=== PATIENT | female | born 1980 | race Caucasian/White ===

== ENCOUNTER 2018-04-06 06:51 | Day surgery (SDC) | payer MEDICAID ==
[~2018-04-06 06:51] MED LIST: Lactated Ringers 1,000 ML IV SCH; Sodium Chloride 0.9% 10 ML Syringe FLUSH PRN
[2018-04-06] MEDS ORDERED: Ketorolac 30 MG/ML SDV IVPUSH ONE (08:00)
[2018-04-06] MEDS ORDERED: Ondansetron 4 MG/2 ML SDV IVPUSH ONE (08:00)
[2018-04-06] MEDS ORDERED: fentaNYL 100 MCG/2 ML SDV IV ONE (08:00)
[2018-04-06] MEDS ORDERED: Propofol 200 MG/20 ML SDV IV ONE (08:00)
[2018-04-06] MEDS ORDERED: Midazolam 1 MG/ML 2 ML SDV IV ONE (08:00)
[2018-04-06] MEDS ORDERED: Lactated Ringers 1,000 ML IV ONE (08:00)
[2018-04-06] MEDS ORDERED: Lidocaine 1% with EPINEPHrine 1:100,000 20 ML MDV INJECT ONE (08:25)
[2018-04-06] MEDS ORDERED: Bupivacaine 0.5% 30 ML SDV INJECT ONE (08:25)
--- NOTE | 2018-04-06 08:52 | PCM.OPNOTE ---
- General Post-Op/Procedure Note Date of Surgery/Procedure: 04/06/18 Operative Procedure(s): right breast biopsy Findings: 4x2 cm mass Pre Op Diagnosis: right breast mass. fibroadenoma Post-Op Diagnosis: Same Anesthesia Technique: Local (10 ml 1 % lido with epi/0.5% buvipicaine), MAC Primary Surgeon: Vaughn Lopez Anesthesia Provider: Marek Ferrer Pathology: breast mass Complications: None Condition: Good Free Text/Narrative:: see dictation #[id number]
--- NOTE | 2018-04-06 16:45 | OR ---
DATE OF OPERATION: 04/06/2018 SURGEON: Vaughn Lopez MD PROCEDURE PERFORMED: Right breast biopsy. PREOPERATIVE DIAGNOSIS: Fibroadenoma of the right breast. POSTOPERATIVE DIAGNOSIS: Fibroadenoma of the right breast. 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 She has undergone a core biopsy, which is proven this. Due to the lesion's large size, she desires excision as this is tender and causes visible deformity of the breast. DESCRIPTION OF PROCEDURE: After an excellent IV sedation was administered, the patient was prepped and draped in usual sterile manner. The area surrounding the fibroadenoma, which was located at the 8 to 9 o'clock position of the right breast was infiltrated with 20 mL of 1:1 mixture of 1% lidocaine with epinephrine 0.5% bupivacaine. Incision was then made in the inframammary fold and a combination of sharp and electrocautery dissection was used to deliver the mass. The mass was delivered. It measured approximately 4 cm in diameter x approximately 2 cm in width. The specimen was passed off the field. The area was irrigated, and then, after ensuring excellent hemostasis, the incision was closed using a running 4-0 Vicryl. Dressing was applied. Needle, sponge, and instrument counts were reported as correct. The patient was taken to recovery room in good condition. /[id number] /MODL
== END 2018-04-06 09:50 | disposition home or self-care (01) ==
LOC: FB.SDS 06:51
PROVIDERS: ATTEND Surgery
DX: D24.1 Benign neoplasm of right breast (principal); I10 Essential (primary) hypertension; F32.9 Major depressive disorder, single episode, unspecified; J45.909 Unspecified asthma, uncomplicated; E66.01 Morbid (severe) obesity due to excess calories; F41.1 Generalized anxiety disorder; M19.90 Unspecified osteoarthritis, unspecified site; K21.9 Gastro-esophageal reflux disease without esophagitis; Z90.49 Acquired absence of other specified parts of digestive tract; Z79.899 Other long term (current) drug therapy; Z88.0 Allergy status to penicillin; Z88.8 Allergy status to other drugs, medicaments and biological substances; Z91.010 Allergy to peanuts; Z90.89 Acquired absence of other organs; Z87.891 Personal history of nicotine dependence; Z68.39 Body mass index [BMI] 39.0-39.9, adult
CPT/HCPCS: 19101; 81025; 88305; J1885; J2250; J2405; J2704; J3010; J7120

== ENCOUNTER 2022-04-16 23:15 | Emergency (ER) | payer MEDICAID | END 2022-04-17 00:05 | disposition home or self-care (01) | LOC: FB.ED 23:15 | DX: S93.401A Sprain of unspecified ligament of right ankle, initial encounter (principal); S93.601A Unspecified sprain of right foot, initial encounter; J45.909 Unspecified asthma, uncomplicated; I10 Essential (primary) hypertension; K21.9 Gastro-esophageal reflux disease without esophagitis; E66.9 Obesity, unspecified; Z68.41 Body mass index [BMI] 40.0-44.9, adult; Z90.49 Acquired absence of other specified parts of digestive tract; Z79.899 Other long term (current) drug therapy; Z88.8 Allergy status to other drugs, medicaments and biological substances; Z88.1 Allergy status to other antibiotic agents; Z88.0 Allergy status to penicillin; Z91.010 Allergy to peanuts; W17.89XA Other fall from one level to another, initial encounter | CPT/HCPCS: 73610-RT; 73630-RT; 99283-25; 99285 ==